=== PATIENT | female | born 1960 | race African-American/Black ===

== ENCOUNTER → 2016-08-12 | Day surgery (SDC) | payer BC ==
[~2016-08-12] MED LIST: LISINOPRIL-HCTZ1 T15 PO
--- NOTE | ~2016-08-12 | OR ---
Unit #: [id number] #: [id number] Patient: SANDEEP VELASQUEZ [id number] [address] [address] [id number] MR#: [id number] NAME: SANDEEP VELASQUEZ. ROOM: Date of Procedure: 08/12/2016 Admission Date: 08/12/2016 Surgeon: Arsenio Bush M.D. : 1960 Attending Physician: Arsenoi Bush M.D. Primary Care Physician: Delmy Brumfield A.P.R.N. OPERATIVE REPORT PRIMARY CARE PHYSICIAN Delmy Brumfield. PREOPERATIVE DIAGNOSES The patient has history of colonic polyps removed in the past. She came for repeat screening colonoscopy. PROCEDURES PERFORMED Colonoscopy and biopsy. POSTOPERATIVES DIAGNOSES 1. Single sessile polyp in the mid descending colon. This was removed using cold biopsy forceps. 2. Mild sigmoid and descending colon diverticulosis. 3. Rest of the examination up to cecum was normal. The quality of the prep was excellent. RECOMMENDATIONS Repeat colonoscopy in 5 years. Follow up the results of polyp histology. SEDATION USED MAC. DESCRIPTION OF PROCEDURE Following detailed explanation of potential risks and complications of a colonoscopy, namely perforation, bleeding, complication related to sedation, the patient was brought to GI lab and laid in the left lateral decubitus position. A digital rectal examination was performed, which was normal. Lubricated tip of the Olympus video colonoscope was inserted through the anus and advanced under direct vision. The scope was advanced past rectosigmoid into descending colon. Scant small diverticula were noticed in this area. The scope tip was then navigated all the way up to cecum with visualization of the ileocecal valve and the appendiceal orifice. Preparation was excellent with good visualization and photodocumentation was obtained. Successive segments of the colonic mucosa were examined upon withdrawal. A single sessile polyp was noted in the proximal descending colon. This was diminutive and was removed using cold biopsy forceps. No additional polyps were noted. Other than the scant diverticula on the left side, no other abnormalities were found. The patient did not have any hemorrhoids at the anal verge. The scope was then withdrawn and the patient returned to the recovery area. She Unit #: [id number] #: [id number] Patient: SANDEEP VELASQUEZ tolerated the procedure without any postprocedure complications. Dictated by... Nikita Perera TD: 08/12/2016 16:12 JOB #: [id number] OPERATIVE REPORT Page 1 of 1 X Arsenio Bush MD PROCEDURE OPERATIVE NOTE
== END | disposition home or self-care (01) ==
LOC: COPS 07:04
PROVIDERS: Internal Medicine Gastroenterology
PROC: 0DBM8ZX Excision of Descending Colon, Via Natural or Artificial Opening Endoscopic, Diagnostic (ICD-10-PCS; principal; 2016-08-12 08:30)
DX: Z12.11 Encounter for screening for malignant neoplasm of colon (principal); D12.4 Benign neoplasm of descending colon; K57.30 Diverticulosis of large intestine without perforation or abscess without bleeding; K21.9 Gastro-esophageal reflux disease without esophagitis; I10 Essential (primary) hypertension; Z79.899 Other long term (current) drug therapy; Z90.710 Acquired absence of both cervix and uterus
CPT/HCPCS: 88305; J2250